=== PATIENT | female | born 1950 | race Two or more races ===

== ENCOUNTER 2019-08-30 05:19 | Day surgery (SDC) | payer OTHER ==
[~2019-08-30 05:19] MED LIST: CLONAZE PO; COZAAR25 MG; FORTAMET500 MG PO; LIPITOR40 MG PO; PEPCID PO; VERAPAMIL ER120 MG
== END 2019-08-30 11:55 | disposition home or self-care (01) ==
LOC: CIR.AMB 05:19
DX: R15.9 Full incontinence of feces (principal); K92.1 Melena
CPT/HCPCS: 64581; 95972; C1897

== ENCOUNTER 2019-09-13 05:52 | Day surgery (SDC) | payer OTHER | END 2019-09-13 10:30 | disposition home or self-care (01) | LOC: CIR.AMB 05:52 | DX: R15.9 Full incontinence of feces (principal) | CPT/HCPCS: 64590; C1767 ==

== ENCOUNTER 2021-02-26 05:50 | Day surgery (SDC) | payer OTHER ==
[~2021-02-26 05:50] MED LIST changes: +COZAAR100 MG PO; +FORTAMET1000 MG PO; +JANUMET PO; +SYNTHROID PO; +VERELAN180 MG PO; +[UNRECOGNIZED DRUG - OTHER] PO
== END 2021-02-26 10:40 | disposition home or self-care (01) ==
LOC: CIR.AMB 05:50
PROVIDERS: ATTEND Colon & Rectal Surgery
DX: R15.9 Full incontinence of feces (principal); Z20.822 Contact with and (suspected) exposure to COVID-19